=== PATIENT | female | born 1990 | race American Indian/Alaskan Native ===

== ENCOUNTER 2021-07-23 04:01 | Emergency (ER) | payer SELFPAY ==
--- NOTE | 2021-07-23 05:31 | Emergency Department Report ---
HPI <DAVIS YUEN - Last Filed: 07/23/21 14:24> - HPI HPI: 30-year-old -[place] female presents to the emergency department for a mental health evaluation. The patient endorses both suicidal and homicidal ideations. She does not have any particular plan as to how she would kill herself. When asked who she is homicidal towards she says "everyone." The patient does admit to smoking crack cocaine and alcohol use. When asked if she has any history of any diagnosed psychiatric conditions, the patient says no. The patient appears somewhat manic and is a poor historian. She will follow tessie doan but often times has to be told something multiple times before she will cooperate. <KAREN HOUGH - Last Filed: 07/25/21 06:31> - General Chief Complaint: Psych Time Seen by Provider: 07/23/21 04:46 ED Past Medical Hx <DAVIS YUEN - Last Filed: 07/23/21 14:24> <KAREN HOUGH - Last Filed: 07/25/21 06:31> - Medications Home Medications: Home Medications Medication Instructions Recorded Confirmed Last Taken Type No Known Home Medications [No 07/23/21 07/23/21 Unknown History Reported Home Medications] ED Review of Systems ROS: Stated complaint: HEARING VOICES Other details as noted in HPI <DAVIS YUEN - Last Filed: 07/23/21 14:24> ROS: Stated complaint: HEARING VOICES Other details as noted in HPI Comment: All other systems reviewed and negative Constitutional: denies: fever Respiratory: denies: cough, shortness of breath Cardiovascular: denies: chest pain, palpitations Gastrointestinal: denies: abdominal pain, vomiting Musculoskeletal: denies: back pain, arthralgia Neurological: denies: headache, weakness Psychiatric: homicidal thoughts, suicidal thoughts <KAREN HOUGH - Last Filed: 07/25/21 06:31> Physical Exam - Physical Exam Vital Signs: Vital Signs 07/23/21 07/23/21 07/23/21 04:20 05:23 09:22 Temperature 98.8 F Pulse Rate 98 H Respiratory 18 Rate Blood Pressure 128/94 [Left] O2 Sat by Pulse 98 98 98 Oximetry <DAVIS YUEN - Last Filed: 07/23/21 14:24> - Physical Exam Vital Signs: Vital Signs 07/23/21 07/23/21 04:20 05:23 Temperature 98.8 F Pulse Rate 98 H Respiratory 18 Rate Blood Pressure 128/94 [Left] O2 Sat by Pulse 98 98 Oximetry Physical Exam: GENERAL: The patient is well-developed well-nourished. HENT: Normocephalic. Atraumatic. Patient has moist mucous membranes. EYES: Extraocular motions are intact. NECK: Supple. Trachea is midline. CHEST/LUNGS: Clear to auscultation. There is no respiratory distress noted. HEART/CARDIOVASCULAR: Regular. There is no tachycardia. There is no murmur. ABDOMEN: Abdomen is soft, nontender. Patient has normal bowel sounds. SKIN: Skin is warm and dry. NEURO: The patient is awake, alert, and oriented. The patient has no focal neurologic deficits. Normal speech. MUSCULOSKELETAL: There is no tenderness or deformity. There is no limitation range of motion. <KAREN HOUGH S - Last Filed: 07/25/21 06:31> ED Course Vital Signs 07/23/21 07/23/21 07/23/21 04:20 05:23 09:22 Temperature 98.8 F Pulse Rate 98 H Respiratory 18 Rate Blood Pressure 128/94 [Left] O2 Sat by Pulse 98 98 98 Oximetry <DAVIS YUEN - Last Filed: 07/23/21 14:24> Vital Signs 07/23/21 07/23/21 04:20 05:23 Temperature 98.8 F Pulse Rate 98 H Respiratory 18 Rate Blood Pressure 128/94 [Left] O2 Sat by Pulse 98 98 Oximetry <KAREN HOUGH - Last Filed: 07/25/21 06:31> ED Medical Decision Making - Lab Data Result diagrams: 07/23/21 05:19 07/23/21 05:19 - Medical Decision Making I have reviewed labs obtained. CBC chemistry within normal limits. hCG serum negative. PCR coronavirus test negative. Patient is medically clear for psychiatric care. Inpatient treatment recommended by psychiatric team. <DAVIS YUEN - Last Filed: 07/23/21 14:24> - Lab Data Result diagrams: 07/23/21 05:19 07/23/21 05:19 Lab Results 07/23/21 07/23/21 07/23/21 Range/Units 05:19 05:19 05:19 WBC 5.8 (4.5-11.0) K/mm3 RBC 4.39 (3.65-5.03) M/mm3 Hgb 12.4 (10.1-14.3) gm/dl Hct 37.7 (30.3-42.9) % MCV 86 (79-97) fl MCH 28 (28-32) pg MCHC 33 (30-34) % RDW 16.1 H (13.2-15.2) % Plt Count 364 (140-440) K/mm3 Lymph % (Auto) 24.9 (13.4-35.0) % Sharp % (Auto) 8.8 H (0.0-7.3) % Eos % (Auto) 0.1 (0.0-4.3) % Baso % (Auto) 0.5 (0.0-1.8) % Lymph # (Auto) 1.4 (1.2-5.4) K/mm3 Sharp # (Auto) 0.5 (0.0-0.8) K/mm3 Eos # (Auto) 0.0 (0.0-0.4) K/mm3 Baso # (Auto) 0.0 (0.0-0.1) K/mm3 Seg Neutrophils % 65.7 (40.0-70.0) % Seg Neutrophils # 3.8 (1.8-7.7) K/mm3 Sodium 134 L (137-145) mmol/L Potassium 3.6 (3.6-5.0) mmol/L Chloride 97.3 L (98-107) mmol/L Carbon Dioxide 24 (22-30) mmol/L Anion Gap 16 mmol/L BUN 10 (7-17) mg/dL Creatinine 0.4 L (0.6-1.2) mg/dL Estimated GFR > 60 ml/min BUN/Creatinine Ratio 25 % Glucose 97 (65-100) mg/dL Calcium 9.6 (8.4-10.2) mg/dL HCG, Qual (Negative) Urine Color (Yellow) Urine Turbidity (Clear) Urine pH (5.0-7.0) Ur Specific [place] (1.003-1.030) Urine Protein (Negative) mg/dL Urine Glucose (UA) (Negative) mg/dL Urine Ketones (Negative) mg/dL Urine Blood (Negative) Urine Nitrite (Negative) Urine Bilirubin (Negative) Urine Urobilinogen (<2.0) mg/dL Ur Leukocyte Esterase (Negative) Urine WBC (Auto) (0.0-6.0) /HPF Urine RBC (Auto) (0.0-6.0) /HPF Urine Opiates Screen Urine Methadone Screen Ur Barbiturates Screen Ur Phencyclidine Scrn Ur Amphetamines Screen U Benzodiazepines Scrn Urine Cocaine Screen U Marijuana (THC) Screen Drugs of Abuse Note Plasma/Serum Alcohol < 0.01 (0-0.07) % SARS-CoV-2 (PCR) (Negative) 07/23/21 07/23/21 07/24/21 Range/Units 05:19 09:20 22:03 WBC (4.5-11.0) K/mm3 RBC (3.65-5.03) M/mm3 Hgb (10.1-14.3) gm/dl Hct (30.3-42.9) % MCV (79-97) fl MCH (28-32) pg MCHC (30-34) % RDW (13.2-15.2) % Plt Count (140-440) K/mm3 Lymph % (Auto) (13.4-35.0) % [place] % (Auto) (0.0-7.3) % Eos % (Auto) (0.0-4.3) % Baso % (Auto) (0.0-1.8) % Lymph # (Auto) (1.2-5.4) K/mm3 Sharp # (Auto) (0.0-0.8) K/mm3 Eos # (Auto) (0.0-0.4) K/mm3 Baso # (Auto) (0.0-0.1) K/mm3 Seg Neutrophils % (40.0-70.0) % Seg Neutrophils # (1.8-7.7) K/mm3 Sodium (137-145) mmol/L Potassium (3.6-5.0) mmol/L Chloride (98-107) mmol/L Carbon Dioxide (22-30) mmol/L Anion Gap mmol/L BUN (7-17) mg/dL Creatinine (0.6-1.2) mg/dL Estimated GFR ml/min BUN/Creatinine Ratio % Glucose (65-100) mg/dL Calcium (8.4-10.2) mg/dL HCG, Qual Negative (Negative) Urine Color Yellow (Yellow) Urine Turbidity Clear (Clear) Urine pH 5.0 (5.0-7.0) Ur Specific [place] 1.014 (1.003-1.030) Urine Protein <15 mg/dl (Negative) mg/dL Urine Glucose (UA) Neg (Negative) mg/dL Urine Ketones Neg (Negative) mg/dL Urine Blood Neg (Negative) Urine Nitrite Neg (Negative) Urine Bilirubin Neg (Negative) Urine Urobilinogen < 2.0 (<2.0) mg/dL Ur Leukocyte Esterase Tr (Negative) Urine WBC (Auto) < 1.0 (0.0-6.0) /HPF Urine RBC (Auto) < 1.0 (0.0-6.0) /HPF Urine Opiates Screen Urine Methadone Screen Ur Barbiturates Screen Ur Phencyclidine Scrn Ur Amphetamines Screen U Benzodiazepines Scrn Urine Cocaine Screen U Marijuana (THC) Screen Drugs of Abuse Note Plasma/Serum Alcohol (0-0.07) % SARS-CoV-2 (PCR) Negative (Negative) 07/24/21 Range/Units 22:03 WBC (4.5-11.0) K/mm3 RBC (3.65-5.03) M/mm3 Hgb (10.1-14.3) gm/dl Hct (30.3-42.9) % MCV (79-97) fl MCH (28-32) pg MCHC (30-34) % RDW (13.2-15.2) % Plt Count (140-440) K/mm3 Lymph % (Auto) (13.4-35.0) % Sharp % (Auto) (0.0-7.3) % Eos % (Auto) (0.0-4.3) % Baso % (Auto) (0.0-1.8) % Lymph # (Auto) (1.2-5.4) K/mm3 Sharp # (Auto) (0.0-0.8) K/mm3 Eos # (Auto) (0.0-0.4) K/mm3 Baso # (Auto) (0.0-0.1) K/mm3 Seg Neutrophils % (40.0-70.0) % Seg Neutrophils # (1.8-7.7) K/mm3 Sodium (137-145) mmol/L Potassium (3.6-5.0) mmol/L Chloride (98-107) mmol/L Carbon Dioxide (22-30) mmol/L Anion Gap mmol/L BUN (7-17) mg/dL Creatinine (0.6-1.2) mg/dL Estimated GFR ml/min BUN/Creatinine Ratio % Glucose (65-100) mg/dL Calcium (8.4-10.2) mg/dL HCG, Qual (Negative) Urine Color (Yellow) Urine Turbidity (Clear) Urine pH (5.0-7.0) Ur Specific [place] (1.003-1.030) Urine Protein (Negative) mg/dL Urine Glucose (UA) (Negative) mg/dL Urine Ketones (Negative) mg/dL Urine Blood (Negative) Urine Nitrite (Negative) Urine Bilirubin (Negative) Urine Urobilinogen (<2.0) mg/dL Ur Leukocyte Esterase (Negative) Urine WBC (Auto) (0.0-6.0) /HPF Urine RBC (Auto) (0.0-6.0) /HPF Urine Opiates Screen Negative Urine Methadone Screen Negative Ur Barbiturates Screen Negative Ur Phencyclidine Scrn Negative Ur Amphetamines Screen Negative U Benzodiazepines Scrn Negative Urine Cocaine Screen Positive U Marijuana (THC) Screen Negative Drugs of Abuse Note Disclamer Plasma/Serum Alcohol (0-0.07) % SARS-CoV-2 (PCR) (Negative) - Medical Decision Making This patient presents to the emergency department with suicidal and homicidal ideations. For this reason she has been made a 1013. She does have some erratic behavior. She will follow some commands but oftentimes she is difficult to redirect and commands have to be given multiple times before she will follow them. However she is oriented, AAO x3. The patient admits to recent use of crack cocaine and alcohol consumption. So far only the CBC has resulted and is unremarkable. I am still waiting for the rest of the labs for her medical clearance. Initial vital signs are reassuring including being afebrile. The patient will be seen by the psychiatric team later this morning. <KAREN HOUGH - Last Filed: 07/25/21 06:31> Critical care attestation.: If time is entered above; I have spent that time in minutes in the direct care of this critically ill patient, excluding procedure time. <DAVIS YUEN - Last Filed: 07/23/21 14:24> Critical Care Time: No Critical care attestation.: If time is entered above; I have spent that time in minutes in the direct care of this critically ill patient, excluding procedure time. <KAREN HOUGH - Last Filed: 07/25/21 06:31> ED Disposition <DAVIS YUEN - Last Filed: 07/23/21 14:24> Is pt being admited?: No <KAREN HOUGH - Last Filed: 07/25/21 06:31> Clinical Impression: Suicidal ideations, Homicidal ideations Disposition: [facility] Condition: Stable Referrals: PRIMARY CARE, [Primary Care Provider] - 3-5 Days
[2021-07-23 05:47] LABS: Basophils % (Auto) 0.5 % (0.0-1.8); Eosinophils % (Auto) 0.1 % (0.0-4.3); Hematocrit 37.7 % (30.3-42.9); Hemoglobin 12.4 gm/dl (10.1-14.3); Lymphocytes # (Auto) 1.4 K/mm3 (1.2-5.4); Lymphocytes % (Auto) 24.9 % (13.4-35.0); Mean Corpuscular HGB Conc 33 % (30-34); Mean Corpuscular Volume 86 fl (79-97); Monocytes # (Auto) 0.5 K/mm3 (0.0-0.8); Monocytes % (Auto) 8.8 % (0.0-7.3); Platelet Count 364 K/mm3 (140-440); Red Blood Count 4.39 M/mm3 (3.65-5.03); Red Cell Distribution Width 16.1 % (13.2-15.2)
[2021-07-23 06:03] LABS: Blood Urea Nitrogen 10 mg/dL (7-17); Calcium 9.6 mg/dL (8.4-10.2); Hemolysis Index 11
[2021-07-23 06:09] LABS: BUN/Creatinine Ratio 25
--- NOTE | 2021-07-23 11:13 | Consultation ---
History of Present Illness - Reason for Consult Consult date: 07/23/21 Reason for consult: suicidal ideation - History of Present Psychiatric Illness ED Note:30-year-old -[place] female presents to the emergency department for a mental health evaluation. The patient endorses both suicidal and homicidal ideations. She does not have any particular plan as to how she would kill herself. When asked who she is homicidal towards she says "everyone." The patient does admit to smoking crack cocaine and alcohol use. When asked if she has any history of any diagnosed psychiatric conditions, the patient says no. The patient appears somewhat manic and is a poor historian. She will follow commands but often times has to be told something multiple times before she will cooperate. The patient was seen this morning. She had a blanket over her head and did not want to engage in assessment. PAST PSYCHIATRIC HISTORY: PAST MEDICAL HISTORY: Family Psychiatric History: None reported or documented SOCIAL HISTORY REVIEW OF SYSTEMS MENTAL STATUS EXAMINATION Diagnoses: (1) Major depressive disorder Treatment Plan: 1013 Continue - Home Medications. Start Prozac 10mg po daily Start Trazodone 50mg po qhs Patient should be compliant with medications and not to use drugs and not to drink alcohol. PSYCHOTHERAPY: Supportive psychotherapy provided MEDICAL: Per primary team DELIRIUM PRECAUTIONS: Please re-orient patient frequently, keep lights on during the day, and minimize benzodiazepines and opiates as these medications could worsen patient's confusion. SOFTWARE PROGRAMMER: Per medical team DISPOSITION: Recommend acute inpatient psychiatric hospitalization at this time. FOLLOW-UP: Will follow. Thank you for the consult. Please contact with any questions and/or concerns. Medications and Allergies Medications and Allergies Allergies Allergy/AdvReac Type Severity Reaction Status Date / Time No Known Allergies Allergy Verified 07/23/21 04:19 Home Medications Medication Instructions Recorded Confirmed Last Taken Type No Known Home Medications [No 07/23/21 07/23/21 Unknown History Reported Home Medications] Mental Status Exam - Vital signs Last Vital Signs Temp 98.8 F 07/23/21 04:20 Pulse 98 H 07/23/21 04:20 Resp 18 07/23/21 04:20 BP 128/94 07/23/21 04:20 Pulse Ox 98 07/23/21 09:22 Results Result Diagrams: 07/23/21 05:19 07/23/21 05:19 Abnormal lab results 07/23/21 07/23/21 Range/Units 05:19 05:19 RDW 16.1 H (13.2-15.2) % [place] % (Auto) 8.8 H (0.0-7.3) % Sodium 134 L (137-145) mmol/L Chloride 97.3 L (98-107) mmol/L Creatinine 0.4 L (0.6-1.2) mg/dL All other labs normal.
[2021-07-23] MEDS: FLUoxetine 10 MG TAB PO SCH (11:53)
[2021-07-23] MEDS: traZODone 50 MG TAB PO SCH (22:12)
[2021-07-24] MEDS: FLUoxetine 10 MG TAB PO SCH (10:33)
--- NOTE | 2021-07-24 11:52 | Event Note ---
Date: 07/24/21 S: No events reported overnight O: Vital Signs - 8 hr 07/24/21 09:42 O2 Sat by Pulse 96 Oximetry Vital Signs - 24 hr 07/23/21 07/23/21 07/24/21 17:14 21:36 03:32 Temperature 99.2 F 99.9 F H 99.2 F Pulse Rate 96 H 110 H 96 H Respiratory 16 18 16 Rate Blood Pressure 105/72 104/62 97/64 [Left] O2 Sat by Pulse 98 93 97 Oximetry 07/24/21 09:42 Temperature Pulse Rate Respiratory Rate Blood Pressure [Left] O2 Sat by Pulse 96 Oximetry A: Major depressive disorder PE: 1013/awaiting inpatient psych
--- NOTE | 2021-07-24 14:34 | Progress Note ---
Subjective - Reason for Consult Consult date: 07/24/21 Reason for consult: Suicidal ideation - Chief Complaint Chief complaint: The patient was seen this morning. She is circumstantial. She states " I care to the ED for mental health breakdown." She reports history of crack cocaine use.The patient states she is homeless, rodríguez handles. The patient gets easily irritable. She admits suicidal ideation without a plan and auditory hallucinations but unable to state what the voices are saying. REVIEW OF SYSTEMS Constitutional: Negative for weight loss ENT: Negative for stridor Respiratory: Negative for cough or hemoptysis All other systems reviewed and are negative MENTAL STATUS EXAMINATION General Appearance and Behavior: Age appropriate, good hygiene, wearing appropriate clothes, cooperative polite with questioning. Cooperation: cooperative Psychomotor Behavior: Normal Mood:Irritable Affect and affective range:congruent Thought Process:Circumstantial Thought Content:Suicidal Speech:Normal Intellectual Functioning: Average Suicidal Ideation:Yes Homicidal Ideation: Denies Hallucination: Auditory Impulse Control:Normal Insight and Judgment:limited insight and poor judgment Memory: Intact Attention:Normal Orientation: Alert and oriented Diagnoses: (1) Major depressive disorder Treatment Plan: 1013 Continue - Home Medications. Continue Prozac 10mg po daily Continue Trazodone 50mg po qhs Patient should be compliant with medications and not to use drugs and not to drink alcohol. PSYCHOTHERAPY: Supportive psychotherapy provided MEDICAL: Per primary team DELIRIUM PRECAUTIONS: Please re-orient patient frequently, keep lights on during the day, and minimize benzodiazepines and opiates as these medications could worsen patient's confusion. BRANCH SALES MANAGER: Per medical team DISPOSITION: Recommend acute inpatient psychiatric hospitalization at this time. FOLLOW-UP: Will follow. Thank you for the consult. Please contact with any questions and/or concerns. Mental Status Exam Mental Status Exam - Vital signs Last Vital Signs Temp 99.2 F 07/24/21 03:32 Pulse 96 H 07/24/21 03:32 Resp 16 07/24/21 03:32 BP 97/64 07/24/21 03:32 Pulse Ox 96 07/24/21 09:42
[2021-07-24 22:19] LABS: Bilirubin,Urine NEG (Negative); Blood,Urine NEG (Negative); Color,Urine Yellow (Yellow); Protein,Urine <15 mg/dL mg/dL (Negative); Urobilinogen,Urine < 2.0 mg/dL (<2.0)
[2021-07-24 22:34] LABS: RBC,Urine < 1.0 /HPF (0.0-6.0); WBC,Urine < 1.0 /HPF (0.0-6.0)
[2021-07-24 22:38] LABS: Amphetamine Screen,Urine Negative; Benzodiazepines Screen,Urine Negative; Cannabinoid Screen,Urine Negative; Methadone Screen,Urine Negative; Opiate Screen,Urine Negative
[2021-07-24 23:25] LABS: Cocaine Screen,Urine Positive
--- NOTE | 2021-07-25 11:19 | Event Note ---
Date: 07/25/21 pt was assessed , continue 1013, awaiting placement , vss no distress
--- NOTE | 2021-07-25 11:36 | Progress Note ---
Subjective Date of service: 07/25/21 Interval history: The patient was seen this morning. She continues to be isolative. She states he is doing well but continues to endorse suicidal/homicidal ideation and hallucinations. REVIEW OF SYSTEMS Constitutional: Negative for weight loss ENT: Negative for stridor Respiratory: Negative for cough or hemoptysis All other systems reviewed and are negative MENTAL STATUS EXAMINATION General Appearance and Behavior: Age appropriate, good hygiene, wearing appropriate clothes, cooperative polite with questioning. Cooperation: cooperative Psychomotor Behavior: Normal Mood:withdrawn Affect and affective range:congruent Thought Process:Circumstantial Thought Content:Suicidal Speech:Normal Intellectual Functioning: Average Suicidal Ideation:Yes Homicidal Ideation: Denies Hallucination: Auditory/Visual Impulse Control:Normal Insight and Judgment:limited insight and poor judgment Memory: Intact Attention:Normal Orientation: Alert and oriented Diagnoses: (1) Major depressive disorder Treatment Plan: 1013 Continue - Home Medications. Continue Prozac 10mg po daily Continue Trazodone 50mg po qhs Patient should be compliant with medications and not to use drugs and not to drink alcohol. PSYCHOTHERAPY: Supportive psychotherapy provided MEDICAL: Per primary team DELIRIUM PRECAUTIONS: Please re-orient patient frequently, keep lights on during the day, and minimize benzodiazepines and opiates as these medications could worsen patient's confusion. SOCIAL SCIENCES INSTRUCTOR: Per medical team DISPOSITION: Recommend acute inpatient psychiatric hospitalization at this time. FOLLOW-UP: Will follow. Thank you for the consult. Please contact with any questions and/or concerns. Objective - Constitutional Vitals: Vital Signs - 12hr 07/25/21 03:02 Temperature 98.6 F Pulse Rate 109 H Respiratory 18 Rate Blood Pressure 91/57 [Left] O2 Sat by Pulse 97 Oximetry - Labs CBC & Chem 7: 07/23/21 05:19 07/23/21 05:19 Medications & Allergies - Medications Allergies/Adverse Reactions: Allergies No Known Allergies Allergy (Verified 07/23/21 04:19) Home Medications: Home Medications Medication Instructions Recorded Confirmed Last Taken Type No Known Home Medications [No 07/23/21 07/23/21 Unknown History Reported Home Medications] Active Medications: Generic Name Dose Route Start Last Admin Trade Name Freq PRN Reason Stop Dose Admin Fluoxetine HCl 10 mg 07/23/21 12:00 07/24/21 10:33 Fluoxetine 10 Mg Tab PO Not Given DAILY SHELBY Trazodone HCl 50 mg 07/23/21 22:00 07/23/21 22:12 Trazodone 50 Mg Tab PO 50 mg QHS SHELBY Administration
[2021-07-25] MEDS: FLUoxetine 10 MG TAB PO SCH (17:08)
[2021-07-25] MEDS: traZODone 50 MG TAB PO SCH ×2 (22:33→22:40)
[2021-07-26] MEDS: FLUoxetine 10 MG TAB PO SCH (09:41)
[2021-07-26 10:03] VITALS: BP 100/54
== END 2021-07-26 11:11 ==
LOC: ED 04:01
DX: F32.9 Major depressive disorder, single episode, unspecified (principal); Z20.822 Contact with and (suspected) exposure to COVID-19; R45.851 Suicidal ideations
CPT/HCPCS: 36415; 80048; 80307; 81001; 84703; 85025; 99285; U0003; 80320; G0480